=== PATIENT | female | born 1970 | race Caucasian/White ===

== ENCOUNTER 2025-06-20 16:11 | Emergency (ER) | payer MEDICARE, MEDICAID, SELFPAY ==
--- NOTE | ~2025-06-20 | CT_ITS ---
CLINICAL HISTORY: trauma CT cervical spine without contrast Comparison: None provided Findings: Straightening of the cervical lordosis. Osteopenia. Multilevel spondylosis with osteophytosis, uncovertebral hypertrophy, facet arthropathy and degenerative disc disease. No acute fractures or dislocations. Scattered prominent lymph nodes throughout the neck, may be reactive however are nonspecific. Focal patchy ground-glass consolidation right upper lobe, is nonspecific. IMPRESSION: No acute cervical spine fracture. Additional findings as described. This document has been electronically signed by: William Smiley MD on 06/20/2025 19:06:15
--- NOTE | ~2025-06-20 | XR_ITS ---
CLINICAL HISTORY: hypoxia --- Additional Notes or Special Instructions: after c- spine cleared 1 view chest x-ray Comparison: None provided Findings: No consolidation or effusion. Prominent cardiac silhouette. No acute fracture. IMPRESSION: 1. No acute findings. This document has been electronically signed by: William Smiley MD on 06/20/2025 20:03:45
--- NOTE | ~2025-06-20 | CT_ITS ---
CLINICAL HISTORY: trauma CT head without contrast Comparison: None provided Findings: Scattered subcortical and periventricular hypoattenuation, likely in keeping with chronic small vessel ischemic disease. Parenchymal volume loss with compensatory prominence of the ventricles and CSF spaces. No acute territorial infarction, intracranial hemorrhage, midline shift or hydrocephalus. Scattered lacunar infarcts left frontal lobe with ex vacuo dilatation of the left frontal horn lateral ventricle. Expansile empty sella, nonspecific. The visualized paranasal sinuses and mastoid air cells are normal. The orbits are within normal limits. There is no acute fracture. IMPRESSION: 1. No acute intracranial hemorrhage or territorial infarction. 2. Additional findings as described. This document has been electronically signed by: William Smiley MD on 06/20/2025 19:04:57
[2025-06-20 16:19] VITALS: BP 131/91; BP 160/100; PULSE 130; PULSE 90; RESP 18; TEMP 36.4; O2SAT 93; O2SAT 94; BMI 39.4
[2025-06-20 16:25] VITALS: BP 131/91; PULSE 90; RESP 18; TEMP 36.4; O2SAT 93
--- NOTE | 2025-06-20 16:30 | PC.NURSE ---
Addendum entered by James Quintanilla RN 06/20/25 18:40: Seizure pads applied to stretcher upon arrival of patient, suction ready. Original Note: 55 F presents to ED after having a fall outside her SNF while smoking a cigarette, unknown if LOC. Pt is A+Ox1 to self, did not know where she was or what happened. ? seizure at sending facility, upper extremitys were shaking per report, hx epilepsy and per facility she is non compliant with seizure meds. Pt very soft spoken but will answer questions. RR even and unlabored, denies CP or SOB.
--- NOTE | 2025-06-20 17:09 | ECG_ITS ---
Test Reason : FALL Blood Pressure : */* mmHG Vent. Rate : 105 BPM Atrial Rate : 105 BPM P-R Int : 196 ms QRS Dur : 90 ms QT Int : 360 ms P-R-T Axes : 39 -25 18 degrees QTcB Int : 475 ms Sinus tachycardia Possible Anteroseptal infarct , age undetermined Abnormal ECG No previous ECGs available Referred By: Eagle Truong Electronically Signed By: GINI MARSHALL MD
--- NOTE | 2025-06-20 17:52 | MHC.EDTECH ---
ekg delay do to ekg machine in use nurse aware
[2025-06-20 18:17] LABS: MANUAL DIFF FLAG NO
--- NOTE | 2025-06-20 18:29 | ED.GENADULT ---
HPI - General Adult General Chief complaint: Fall Stated complaint: witnessed seizure, headstrike Time Seen by Provider: 06/20/25 16:14 Source: patient, RN notes reviewed and old records reviewed Mode of arrival: EMS Limitations: other (poor historian) History of Present Illness ED Provider: Dionne HPI narrative: 55-year-old female with past medical history significant for COPD not on oxygen, epilepsy, hypothyroidism, schizophrenia presents for evaluation after a fall. The patient is at a local nursing facility, she apparently was outside smoking a cigarette when she fell to the ground. She does not remember falling. She denies any pain with the exception of the C-collar causing her neck pain. She has a history of seizure disorder in his unsure if she had a seizure She reports that she is not in any antiepileptic medications. She reports being compliant with all of her other medications Related Data Previous Rx's ?Medication ?Instructions ?Recorded cefuroxime axetil 250 mg tablet 250 mg PO Q12H #10 tabs 06/21/25 Allergies Allergy/AdvReac Type Severity Reaction Status Date / Time No Known Allergies Allergy Verified 06/20/25 16:23 Review of Systems Constitutional: Constitutional: Denies chills, Denies fever(s), Denies frequent falls and Denies headache(s) ENT: Denies vertigo, Denies dizziness, Denies headache(s) and Reports neck pain Cardiovascular: Cardiovascular: Denies chest pain and Denies dyspnea Respiratory: Respiratory: Denies dyspnea Gastrointestinal: Gastrointestinal: Denies abdominal pain, Denies nausea and Denies vomiting Musculoskeletal: Musculoskeletal: Denies back pain, Denies arthralgias, Denies joint swelling, Denies limited range of motion, Reports neck pain, Denies radiating pain into limb, Denies stiffness and Denies tingling Neurologic: Denies vertigo, Denies dizziness, Denies frequent falls, Denies headache(s) and Denies tingling PMFSH Social History Social History Smoked in Last 30 Days: No Use of substances other than those prescribed or required for medical reasons: No Advance Directives: No Advance Directives Information Provided: No Do you have a plan to hurt others: No Plan Patient : No Physical Exam ED Vital Signs: Vital Signs - 24 hr 06/20/25 16:19 06/20/25 16:25 06/20/25 16:25 Temperature 97.6 F 97.6 F 97.6 F Pulse Rate 90 90 90 Respiratory Rate 18 18 18 Blood Pressure 131/91 H 131/91 H 131/91 H Pulse Oximetry 93 93 93 Oxygen Delivery Method Room Air Room Air Oxygen Flow Rate 06/20/25 19:09 06/20/25 22:16 06/21/25 01:02 Temperature 97.9 F 98.3 F 98.7 F Pulse Rate 87 89 88 Respiratory Rate 17 15 18 Blood Pressure 135/93 H 131/90 H 140/100 H Pulse Oximetry 97 96 97 Oxygen Delivery Method Nasal Cannula Room Air Oxygen Flow Rate 2 BMI result Body Mass Index 39.4 Const General: healthy appearing, comfortable, no acute distress, alert and awake Nutritional Appearance: well nourished Orientation/consciousness: patient oriented x3 HENMT Other: There is a small abrasion to the right temporal region, no deep lacerations. Eyes Eyelids: Yes eyelids normal Conjunctivae: conjunctivae normal Sclerae: sclerae normal Corneas: corneas normal Pupils: Equal, round and reactive pupils present EOM: EOMs intact bilaterally Neck Neck: Yes full ROM Resp Effort & Inspection: normal respiratory effort, able to speak in complete sentences and not labored GI Inspection: No distended Palpation (GI): Soft to palpation, not firm, nontender, no guarding and not rigid Back/Spine/Pelvis Other: The patient is in a hard C-collar Skin General skin exam: elasticity normal Neuro General: patient oriented x3 Cranial nerves: Yes Equal, round and reactive pupils present and Yes Bilaterally intact EOM present Cognition (Neuro): normal cognition Extrem Other: Moving all extremities well without any obvious deformities Course Reevaluation(s) Reevaluation #1: The patient has been resting comfortably in the emergency department without any further syncope or seizure-like activity. She feels ready for discharge, she had a mild hypokalemia which was repleted. Her urinalysis has positive esterase and white cells without signs of contamination. We will give her a 5 day course of cefuroxime Time: 01:38 Medications Administered Discontinued Medications Generic Name Dose Route Start Last Admin Trade Name Freq PRN Reason Stop Dose Admin Lactated Ringer's 1,000 mls @ 999 mls/hr 06/20/25 19:45 06/21/25 00:02 Lr IV 06/20/25 20:45 Infused .Q1H1M JHONNY Infusion Potassium Chloride 40 meq 06/20/25 19:32 06/20/25 19:41 Potassium Chloride Er 20 Meq Tab.Er.Prt PO 06/20/25 19:33 40 meq ONCE ONE Administration Medical Decision Making Medical Decision Making [facility] Narrative: 55-year-old female with a past medical history as above presents for evaluation after a fall. In his unclear if this with a syncopal episode, seizure disorder or a mechanical fall. Plan for workup including CT scan of the brain, cervical spine, we will get a chest x-ray. She has a history of COPD and actively smoking, she denies shortness of breath. We will get an EKG, troponin basic labs. The patient's vital signs are stable, but she will be remain on the equipment monitor phototypesetting and seizure pads are in place Differential Diagnosis Differential Diagnoses: The differential diagnosis associated with the presentation includes Seizure disorder Syncope Lightheadedness Near-syncope Intracranial hemorrhage Cervical fracture Contusion Mechanical fall Admission/Observation Consideration of admission/observation: Escalation of care including admission/observation considered Lab Data [facility] Lab Attestation statement: I reviewed the patient's lab results. No leukocytosis or anemia. Normal platelet count. Potassium was low at 3.2, this was repleted with IV fluids as well as oral potassium. Patient's lactic acid was elevated 0.8 which could be related to a seizure the CPK was within normal limits, so noncontributory. This was treat with IV fluids and the lactic acidosis resolved. 06/20/25 18:07 06/20/25 18:07 Labs: Lab Results 06/20/25 06/20/25 06/20/25 Range/Units 18:07 18:09 18:10 WBC 10.6 (4.8-10.8) X10*3/uL RBC 4.93 (4.20-5.50) X10*6/uL Hgb 15.3 (12.0-16.0) g/dl Hct 43.3 (37.0-47.0) % MCV 87.8 (80.0-98.0) fL MCH 31.0 (27.0-33.0) pg MCHC 35.3 H (31.0-35.0) g/dl RDW 12.9 (11.0-16.0) % Plt Count 165 (160-400) X10*3/uL MPV 9.3 L (9.4-12.3) fL Immature Gran % (Auto) 0.4 (0.0-0.4) % Neut % (Auto) 84.8 H (45-73) % Lymph % (Auto) 7.1 L (20-40) % [place] % (Auto) 6.2 (2-11) % Eos % (Auto) 1.2 (0-4) % Baso % (Auto) 0.3 (0-2) % Lymph # (Auto) 0.8 L (1.2-4.9) X10*3/uL [place] # (Auto) 0.7 (0.1-1.2) X10*3/uL Eos # (Auto) 0.1 (0.0-0.4) X10*3/uL Baso # (Auto) 0.0 (0.0-0.2) X10*3/uL Abs Immat Gran (auto) 0.04 H (0.00-0.03) X10*3/uL Absolute Neuts (auto) 9.0 H (2.0-8.3) x10*3/uL Absolute Nucleated RBC 0.000 (0.0-0.012) X10*3/uL Nucleated RBC % (auto) 0.0 (0.0-0.2) /100WBC Sodium 145 (135-145) mmol/L Potassium 3.2 L (3.3-5.1) mmol/L Chloride 111 H (96-108) mmol/L Carbon Dioxide 24 (22-29) mmol/L Anion Gap 13 (12-20) BUN 13 (9-16) mg/dL Creatinine 0.82 (0.5-1.4) mg/dL Estim Creat Clear Calc 105.2 Estimated GFR > 60 Random Glucose 144 H (60-115) mg/dL Lactic Acid 2.8 H* (0.5-2.0) mmol/L Lactic Acid F/U @ 2Hr (0.5-2.0) mmol/L Calcium 9.5 (8.4-10.2) mg/dL Magnesium 2.1 (1.6-2.6) mg/dL Total Bilirubin 0.4 (0.0-1.0) mg/dL AST 26 (5-31) U/L ALT 28 (0-31) U/L Alkaline Phosphatase 86 (39-117) U/L Total Creatine Kinase 76 (26-140) U/L Troponin I High Sens 7.0 (<3.5-17.0) ng/L Total Protein 6.5 (6.5-8.0) g/dL Albumin 4.0 (3.5-5.0) g/dL Lipase 36 (8-78) U/L Urine Color Urine Appearance Urine pH (5.0-9.0) Ur Specific [place] (1.005-1.025) Urine Protein (Neg-Trace) mg/dL Urine Glucose (UA) (Negative) mg/dL Urine Ketones (Negative) mg/dL Urine Blood (Negative) Urine Nitrite (Negative) Ur Leukocyte Esterase (Negative) Urine RBC (0-2) /HPF Urine WBC (0-5) /HPF Ur Squamous Epith Cells (0-2) /HPF Urine Bacteria (None Seen) Hyaline Casts (0-2) /LPF Urine Opiates Screen (Not Detect) Ur Buprenorphine Scrn (Not Detect) ng/mL Ur Oxycodone Screen (Not Detect) ng/mL Urine Methadone Screen (Not Detect) ng/mL Urine Fentanyl Screen (Not Detect) Ur Barbiturates Screen (Not Detect) Ur Phencyclidine Scrn (Not Detect) Ur Amphetamines Screen (Not Detect) U Benzodiazepines Scrn (Not Detect) Urine Cocaine Screen (Not Detect) U Marijuana (THC) Screen (Not Detect) Influenza Type A (PCR) NEGATIVE (Negative) Influenza Type B (PCR) NEGATIVE (Negative) RSV RNA Qual (PCR) NEGATIVE (Negative) SARS-CoV-2 RNA (RT-PCR) NEGATIVE (Negative) 06/20/25 06/21/25 Range/Units 20:36 01:08 WBC (4.8-10.8) X10*3/uL RBC (4.20-5.50) X10*6/uL Hgb (12.0-16.0) g/dl Hct (37.0-47.0) % MCV (80.0-98.0) fL MCH (27.0-33.0) pg MCHC (31.0-35.0) g/dl RDW (11.0-16.0) % Plt Count (160-400) X10*3/uL MPV (9.4-12.3) fL Immature Gran % (Auto) (0.0-0.4) % Neut % (Auto) (45-73) % Lymph % (Auto) (20-40) % [place] % (Auto) (2-11) % Eos % (Auto) (0-4) % Baso % (Auto) (0-2) % Lymph # (Auto) (1.2-4.9) X10*3/uL [place] # (Auto) (0.1-1.2) X10*3/uL Eos # (Auto) (0.0-0.4) X10*3/uL Baso # (Auto) (0.0-0.2) X10*3/uL Abs Immat Gran (auto) (0.00-0.03) X10*3/uL Absolute Neuts (auto) (2.0-8.3) x10*3/uL Absolute Nucleated RBC (0.0-0.012) X10*3/uL Nucleated RBC % (auto) (0.0-0.2) /100WBC Sodium (135-145) mmol/L Potassium (3.3-5.1) mmol/L Chloride (96-108) mmol/L Carbon Dioxide (22-29) mmol/L Anion Gap (12-20) BUN (9-16) mg/dL Creatinine (0.5-1.4) mg/dL Estim Creat Clear Calc Estimated GFR Random Glucose (60-115) mg/dL Lactic Acid (0.5-2.0) mmol/L Lactic Acid F/U @ 2Hr 1.0 (0.5-2.0) mmol/L Calcium (8.4-10.2) mg/dL Magnesium (1.6-2.6) mg/dL Total Bilirubin (0.0-1.0) mg/dL AST (5-31) U/L ALT (0-31) U/L Alkaline Phosphatase (39-117) U/L Total Creatine Kinase (26-140) U/L Troponin I High Sens (<3.5-17.0) ng/L Total Protein (6.5-8.0) g/dL Albumin (3.5-5.0) g/dL Lipase (8-78) U/L Urine Color Yellow Urine Appearance Clear Urine pH 6.5 (5.0-9.0) Ur Specific [place] 1.010 (1.005-1.025) Urine Protein Negative (Neg-Trace) mg/dL Urine Glucose (UA) Negative (Negative) mg/dL Urine Ketones Negative (Negative) mg/dL Urine Blood Negative (Negative) Urine Nitrite Negative (Negative) Ur Leukocyte Esterase Large (3+) H (Negative) Urine RBC 0-2 (0-2) /HPF Urine WBC 21-50 H (0-5) /HPF Ur Squamous Epith Cells 0-2 (0-2) /HPF Urine Bacteria None Seen (None Seen) Hyaline Casts 0-2 (0-2) /LPF Urine Opiates Screen Not Detected (Not Detect) Ur Buprenorphine Scrn Not Detected (Not Detect) ng/mL Ur Oxycodone Screen Not Detected (Not Detect) ng/mL Urine Methadone Screen Not Detected (Not Detect) ng/mL Urine Fentanyl Screen Not Detected (Not Detect) Ur Barbiturates Screen Not Detected (Not Detect) Ur Phencyclidine Scrn Not Detected (Not Detect) Ur Amphetamines Screen Not Detected (Not Detect) U Benzodiazepines Scrn Not Detected (Not Detect) Urine Cocaine Screen Not Detected (Not Detect) U Marijuana (THC) Screen Not Detected (Not Detect) Influenza Type A (PCR) (Negative) Influenza Type B (PCR) (Negative) RSV RNA Qual (PCR) (Negative) SARS-CoV-2 RNA (RT-PCR) (Negative) Radiology Impression Discussion of test interpretation with radiology: I have reviewed the radiologist's reading. Radiologist Impression: Findings: Scattered subcortical and periventricular hypoattenuation, likely in keeping with chronic small vessel ischemic disease. Parenchymal volume loss with compensatory prominence of the ventricles and CSF spaces. No acute territorial infarction, intracranial hemorrhage, midline shift or hydrocephalus. Scattered lacunar infarcts left frontal lobe with ex vacuo dilatation of the left frontal horn lateral ventricle. Expansile empty sella, nonspecific. The visualized paranasal sinuses and mastoid air cells are normal. The orbits are within normal limits. There is no acute fracture. IMPRESSION: 1. No acute intracranial hemorrhage or territorial infarction. 2. Additional findings as described. This document has been electronically signed by: William Smiley MD on 06/20/2025 19:04:57 Findings: Straightening of the cervical lordosis. Osteopenia. Multilevel spondylosis with osteophytosis, uncovertebral hypertrophy, facet arthropathy and degenerative disc disease. No acute fractures or dislocations. Scattered prominent lymph nodes throughout the neck, may be reactive however are nonspecific. Focal patchy ground-glass consolidation right upper lobe, is nonspecific. IMPRESSION: No acute cervical spine fracture. Additional findings as described. This document has been electronically signed by: William Smiley MD on 06/20/2025 19:06:15 Findings: No consolidation or effusion. Prominent cardiac silhouette. No acute fracture. IMPRESSION: 1. No acute findings. This document has been electronically signed by: William Smiley MD on 06/20/2025 20:03:45 Discharge Plan Discharge Clinical Impression: UTI (urinary tract infection) Patient Disposition: Xfer [facility] Instructions: Urinary Tract Infection in Women (ED) Additional Instructions: Your workup in the ER today was reassuring. You did have signs of a possible UTI Take the cefuroxime twice daily for [address] scan did not show any traumatic injuries. Prescriptions: New cefuroxime axetil 250 mg tablet 250 mg PO Q12H Qty: 10 0RF Print Language: Nigerien
[2025-06-20 18:36] LABS: Hematocrit 43.3 % (37.0-47.0); Hemoglobin 15.3 g/dl (12.0-16.0); Imm Gran Abs Auto 0.04 X10*3/uL (0.00-0.03); Imm Gran Pct Auto 0.4 % (0.0-0.4); Lymphocytes Absolute Auto 0.8 X10*3/uL (1.2-4.9); Mean Corpuscular HGB Conc 35.3 g/dl (31.0-35.0); Mean Corpuscular Hemoglobin 31.0 pg (27.0-33.0); Mean Corpuscular Volume 87.8 fL (80.0-98.0); NRBC Abs Auto 0.000 X10*3/uL (0.0-0.012); NRBC Pct Auto 0.0 /100WBC (0.0-0.2); Platelet Count 165 X10*3/uL (160-400); Red Blood Count 4.93 X10*6/uL (4.20-5.50); White Blood Count 10.6 X10*3/uL (4.8-10.8)
[2025-06-20 18:38] LABS: Alanine Aminotransferase 28 U/L (0-31); Albumin Level 4.0 g/dL (3.5-5.0); Alkaline Phosphatase 86 U/L (39-117); Anion Gap 13 (12-20); Aspartate Amino Transferase 26 U/L (5-31); Blood Urea Nitrogen 13 mg/dL (9-16); Calcium 9.5 mg/dL (8.4-10.2); Carbon Dioxide 24 mmol/L (22-29); Chloride 111 mmol/L (96-108); Creatinine Clr Calc Pharmacy 105.2; Estimated Glomerular Filt Rate > 60; Lipase 36 U/L (8-78); Magnesium 2.1 mg/dL (1.6-2.6); Potassium 3.2 mmol/L (3.3-5.1); Sodium 145 mmol/L (135-145); Total Protein 6.5 g/dL (6.5-8.0)
[2025-06-20 18:45] LABS: Troponin-I High Sensitivity 7.0 ng/L (<3.5-17.0)
[2025-06-20 19:04] LABS: Resp Syncy Virus RNA Qual PCR NEGATIVE (Negative); SARS COV2 PCR INHOUSE NEGATIVE (Negative)
[2025-06-20 19:09] VITALS: BP 135/93; PULSE 87; RESP 17; TEMP 36.6; O2SAT 97
[2025-06-20] MEDS: Potassium Chloride ER 20 MEQ TAB.ER.PRT 40 MEQ PO (19:41)
[2025-06-20] MEDS: Lactated Ringers 1,000 ML 999 ML IV (19:41)
[2025-06-20 20:16] LABS: Reflex Lactate? Lactic Acid Added
[2025-06-20 20:53] LABS: ~Lactic Acid-LAB USE ONLY 1.0 mmol/L (0.5-2.0)
--- OUTSIDE RECORDS SUMMARY | 2025-06-20 21:51 | XMS_ITS | Clinical Summary ---
Author Organization [facility] Address [address] [place] [address] Phone Care Team Providers Care Escalator Constructor Name Role Phone Umer Noriega MD Primary Care Provider Encounters Date Type Department Care Team Description 05/12/2025 Lab Requisition [facility] Lab [address] [place] [phone] Umer Noriega MD Anemia, unspecified; Hypothyroidism, unspecified; Vitamin D deficiency, unspecified 05/07/2025 Lab Requisition [facility] Lab [address] [place] [phone] Umer Noriega MD Hypothyroidism, unspecified 04/19/2025 Lab Requisition [facility] Lab [address] [place] [phone] Umer Noriega MD Hypothyroidism, unspecified; Folate deficiency anemia, unspecified from Last 3 Months Social History Tobacco Use Types Packs/Day Years Used Date Smoking Tobacco: Never Assessed Comments Unknown Sex and Gender Information Value Date Recorded Sex Assigned at Not on file Legal Sex Female 8:36 AM EDT Gender Identity Not on file Sexual Orientation Not on file Plan of Treatment Health Maintenance Due Date Last Done Comments Breast Cancer Screening 1968 DTaP,Tdap,and Td Vaccines (1 - Tdap) 1987 Hepatitis B Vaccines (1 of 3 - 19+ 3-dose series) 1987 Cervical Cancer Screening: P ap Smear 1989 Pneumococcal Vaccine: 50+ Ye ars (1 of 1 - PCV) 2018 Zoster Vaccines (1 of 2) 2018 Depression Screening 10/11/2024 Colorectal Cancer Screening: Colonoscopy 04/19/2025 HIV Screening 04/19/2025 Hepatitis C Screening 04/19/2025 Medicare Annual Wellness Visit 04/19/2025 Social Influencers of Health Screening 04/19/2025 COVID-19 Vaccine (2023-2 5 season) 2025 Influenza Vaccine (#1) 2025 Cholesterol Screening (Lipid Panel) 04/19/2030 04/19/2025 HIB Vaccines Aged Out No longer eligi ble based on patient's age to complete this topic HPV Vaccines Aged Out No longer eligi ble based on patient's age to complete this topic Hepatitis A Vaccines Aged Out No long er eligible based on patient's age to complete this topic IPV Vaccines Aged Out No longer eligi ble based on patient's age to complete this topic MMR Vaccines Aged Out No longer eligi ble based on patient's age to complete this topic Meningococcal ACWY Vaccine Aged Out N o longer eligible based on patient's age to complete this topic Meningococcal B Vaccine Aged Out No l onger eligible based on patient's age to complete this topic RSV Immunization Patients Un huma 20 months Aged Out No longer eligible b ased on patient's age to complete this topic Varicella Vaccines Aged Out No longer eligible based on patient's age to complete this topic Procedures Procedure Name Priority Date/Time Associated Diagnosis Comments THYROID STIMULATING HORMONE Routine 05/07/2025 8:36 AM EDT Hypothyroidism, unspecified MAGNESIUM Routine 04/19/2025 7:37 AM EDT Hypothyroidism, unspecified Folate deficiency anemia, unspecified TRIIODOTHYRONINE TOTAL Routine 7:37 AM EDT Hypothyroidism, unspecified Folate deficiency anemia, unspecified THYROXINE TOTAL Routine 04/19/2025 7:37 AM EDT Hypothyroidism, unspecified Folate deficiency anemia, unspecified THYROID STIMULATING HORMONE Routine 04/19/2025 7:37 AM EDT Hypothyroidism, unspecified Folate deficiency anemia, unspecified LIPID PANEL WITH REFLEX TO DIRECT LDL Routine 04/19/2025 7:37 AM EDT Hypothyroidism, unspecified Folate deficiency anemia, unspecified COMPREHENSIVE METABOLIC PANEL Routine 04/19/2025 7:37 AM EDT Hypothyroidism, unspecified Folate deficiency anemia, unspecified COMPLETE BLOOD COUNT Routine 04/19/2025 7:37 AM EDT Hypothyroidism, unspecified Folate deficiency anemia, unspecified from Last 3 Months Results * (ABNORMAL) Thyroid stimulating hormone (05/07/2025 8:36 AM EDT) Only the most recent of2 resultswithin the time period is included. Pathologist [facility] TSH 9.00(H) 0.40 - 4.00 mcIU/mL LAB CHEMISTRY METHOD 05/07/2025 7:32 PM EDT [facility] Blood Venous blood specimen / Unknown Venipuncture / Unknown 05/07/2025 8:36 AM EDT 05/07/2025 11:05 AM EDT us Umer Noriega MD LAB BLOOD ORDERABLES Final R esult [facility] [address] [place] [address], [place] [phone] * (ABNORMAL) Lipid panel with reflex to direct LDL (04/19/2025 7:37 AM EDT) [facility] Cholesterol 198 0 - 200 mg/dL LAB CHEMISTRY METHOD 04/19/2025 9:29 AM EDT [facility] Triglycerides 87 0 - 150 mg/dL LAB CHEMISTRY METHOD 04/19/2025 9:29 AM EDT [facility] HDL 66 >=40 mg/dL LAB CHEMISTRY METHOD 04/19/2025 9:29 AM EDT [facility] LDL Calculated 115(H) 0 - 100 mg/dL LAB CHEMISTRY METHOD 04/19/2025 9:29 AM EDT [facility] VLDL Cholesterol Vidal 17.4 mg/dL LAB CHEMISTRY METHOD 04/19/2025 9:29 AM EDT [facility] Non HDL Chol. (LDL+VLDL) 132 <145 mg/dL LAB CHEMISTRY METHOD 04/19/2025 9:29 AM [facility] Chol/HDL Ratio 3.0 0.0 - 4.4 LAB CHEMISTRY METHOD 04/19/2025 9:29 AM [facility] Blood Venous blood specimen / Unknown Venipuncture / Unknown 04/19/2025 7:37 AM EDT 04/19/2025 8:40 AM EDT us Umer Noriega MD LAB BLOOD ORDERABLES Final R esult [facility] [address] [place] [address], * Complete blood count (04/19/2025 7:37 AM EDT) WBC 6.7 4.8 - 10.8 K/mcL LAB HEMETOLOGY METHOD 04/19/2025 9:05 AM [facility] RBC 4.50 3.80 - 4.80 M/[facility] LAB HEMETOLOGY METHOD 04/19/2025 9:05 AM [facility] Hemoglobin 13.6 11.5 - 16.0 g/dL LAB HEMETOLOGY METHOD 04/19/2025 9:05 AM [facility] Hematocrit 40.9 35.0 - 47.0 % LAB HEMETOLOGY METHOD 04/19/2025 9:05 AM [facility] MCV 90.5 79.0 - 98.0 FL LAB HEMETOLOGY METHOD 04/19/2025 9:05 AM [facility] MCH 30.1 27.0 - 32.0 pcg LAB HEMETOLOGY METHOD 04/19/2025 9:05 AM [facility] MCHC 33.3 32.0 - 37.0 g/dL LAB HEMETOLOGY METHOD 04/19/2025 9:05 AM EDT [facility] RDW 13.7 11.0 - 15.0 % LAB HEMETOLOGY METHOD 04/19/2025 9:05 AM EDT [facility] Platelets 165 130 - 400 K/mcL LAB HEMETOLOGY METHOD 04/19/2025 9:05 AM EDT [facility] MPV 9.6 7.0 - 11.0 FL LAB HEMETOLOGY METHOD 04/19/2025 9:05 AM EDT [facility] NRBC 0.0 <1.0 % LAB HEMETOLOGY METHOD 04/19/2025 9:05 AM EDT [facility] NRBC Absolute 0.00 <0.10 K/mcL LAB HEMETOLOGY METHOD 04/19/2025 9:05 AM EDT [facility] Blood Venous blood specimen / Unknown Venipuncture / Unknown 04/19/2025 7:37 AM EDT 04/19/2025 8:40 AM EDT Umer Noriega MD LAB BLOOD ORDERABLES Final R esult [facility] [address] [place] [address], * Triiodothyronine total (04/19/2025 7:37 AM EDT) T3, Total 89.23 60.00 - 181.00 ng/dL LAB CHEMISTRY METHOD 04/19/2025 11:08 AM EDT [facility] Blood Venous blood specimen / Unknown Venipuncture / Unknown 04/19/2025 7:37 AM EDT 04/19/2025 8:40 AM EDT Umer Noriega MD LAB BLOOD ORDERABLES Final R esult [facility] [address] [place] [address], [place] [phone] * Thyroxine total (04/19/2025 7:37 AM EDT) [facility] T4, Total 6.2 4.5 - 10.9 mcg/dL LAB CHEMISTRY METHOD 04/19/2025 12:50 PM EDT [facility] Blood Venous blood specimen / Unknown Venipuncture / Unknown 04/19/2025 7:37 AM EDT 04/19/2025 8:40 AM EDT Umer Noriega MD LAB BLOOD ORDERABLES Final R esult Performing Organization Address City/[facility]/ZIP Co de Phone Number [facility] [address] [place] [address], [place] [phone] * Magnesium (04/19/2025 7:37 AM EDT) [facility] Magnesium 1.9 1.9 - 2.6 mg/dL LAB CHEMISTRY METHOD 04/19/2025 9:29 AM EDT [facility] Blood Venous blood specimen / Unknown Venipuncture / Unknown 04/19/2025 7:37 AM EDT 04/19/2025 8:40 AM EDT Umer Noriega MD LAB BLOOD ORDERABLES Final R esult [facility] [address] [place] [address], [place] [phone] * (ABNORMAL) Comprehensive metabolic panel (04/19/2025 7:37 AM EDT) [facility] Sodium 139 133 - 145 mmol/L LAB CHEMISTRY METHOD 04/19/2025 9:29 AM EDT [facility] Potassium 3.8 3.5 - 5.5 mmol/L LAB CHEMISTRY METHOD 04/19/2025 9:29 AM [facility] Chloride 106 96 - 110 mmol/L LAB CHEMISTRY METHOD 04/19/2025 9:29 AM [facility] CO2 28 21 - 32 mmol/L LAB CHEMISTRY METHOD 04/19/2025 9:29 AM [facility] Anion Gap 5 3 - 11 LAB CHEMISTRY METHOD 04/19/2025 9:29 AM [facility] Glucose 80 70 - 100 mg/dL LAB CHEMISTRY METHOD 04/19/2025 9:29 AM [facility] BUN 16 5 - 25 mg/dL LAB CHEMISTRY METHOD 04/19/2025 9:29 AM [facility] Creatinine 0.76 0.50 - 1.10 mg/dL LAB CHEMISTRY METHOD 04/19/2025 9:29 AM [facility] eGFR 92 >=60 mL/min/1. 73m2 LAB CHEMISTRY METHOD 04/19/2025 9:29 AM [facility] Comment:Calculation based on the Chronic Kidney Disease Epidemiology Collaboration (CKD-EPI) equation refit without adjustment for race. BUN/Creatinine Ratio 21.1 LAB CHEMISTRY METHOD 04/19/2025 9:29 AM [facility] Calcium 9.6 8.5 - 10.5 mg/dL LAB CHEMISTRY METHOD 04/19/2025 9:29 AM [facility] AST (SGOT) 20 10 - 42 unit/L LAB CHEMISTRY METHOD 04/19/2025 9:29 AM [facility] ALT (SGPT) 32 10 - 60 unit/L LAB CHEMISTRY METHOD 04/19/2025 9:29 AM [facility] Alkaline Phosphatase 137(H) 42 - 121 unit/L LAB CHEMISTRY METHOD 04/19/2025 9:29 AM [facility] Total Protein 6.5 6.0 - 8.0 g/dL LAB CHEMISTRY METHOD 04/19/2025 9:29 AM [facility] Albumin 3.5 3.2 - 5.0 g/dL LAB CHEMISTRY METHOD 04/19/2025 9:29 AM EDT [facility] Total Bilirubin 0.5 0.0 - 1.4 mg/dL LAB CHEMISTRY METHOD 04/19/2025 9:29 AM EDT [facility] ([facility] Blood Venous blood specimen / Unknown Venipuncture / Unknown 04/19/2025 7:37 AM EDT 04/19/2025 8:40 AM EDT us Umer Noriega MD LAB BLOOD ORDERABLES Final R esult [facility] ([facility]) [facility] [address] [place] [address], [place] [phone] from Last 3 Months Insurance MEDICARE MEDICAID - [place] Care Teams Escalator Constructor Relationship Specialty Start Date End Date Umer Noriega MD [address] [place] [address] PCP - General Family Medicine 04/19/25
--- OUTSIDE RECORDS SUMMARY | 2025-06-20 21:51 | XMS_ITS | Encounter Summary ---
Author Organization [facility] Address [address] [place] [address] Care Team Providers Care Co Chairman Name Role Phone Umer Noriega MD Primary Care Provider Encounter Details Date Type Department Care Team (Late st Contact Info) Description 05/07/2025 Lab Requisition [facility] - Main Lab [address] [place] [address] Umer Noriega MD [address] [place] [address] Hypothyroidism, unspecified Social History Tobacco Use Types Packs/Day Years Used Date Smoking Tobacco: Never Assessed Comments Unknown Sex and Gender Information Value Date Recorded Sex Assigned at Not on file Legal Sex Female 8:36 AM EDT Gender Identity Not on file Sexual Orientation Not on file documented as of this encounter Plan of Treatment Not on file documented as of this encounter Procedures Procedure Name Priority Date/Time Associated Diagnosis Comments THYROID STIMULATING HORMONE Routine 05/07/2025 8:36 AM EDT Hypothyroidism, unspecified documented in this encounter Results * (ABNORMAL) Thyroid stimulating hormone (05/07/2025 8:36 AM EDT) TSH 9.00(H) 0.40 - 4.00 mcIU/mL LAB CHEMISTRY METHOD 05/07/2025 7:32 PM EDT [facility] ([facility]) [facility] Blood Venous blood specimen / Unknown Venipuncture / Unknown 05/07/2025 8:36 AM EDT 05/07/2025 11:05 AM EDT us Umer Noriega MD LAB BLOOD ORDERABLES Final R esult [facility] ([facility]) HOSPITAL LAB [address] [place] [address], documented in this encounter Visit Diagnoses Diagnosis Hypothyroidism, unspecified documented in this encounter Care Teams Co Chairman Relationship Specialty Start Date End Date Umer Noriega MD [address] [place] [address] PCP - General Family Medicine 04/19/25 documented as of this encounter
--- OUTSIDE RECORDS SUMMARY | 2025-06-20 21:51 | XMS_ITS | Encounter Summary ---
Author Organization [facility] Address [address] [place] [address] Care Team Providers Care Assistant Speech Language Pathologist Name Role Phone Umer Noriega MD Primary Care Provider Encounter Details Date Type Department Care Team (Late st Contact Info) Description 04/19/[address] [facility] - Main Lab [address] [facility] [place] [address] Umer Noriega MD [address] [place] [address] Hypothyroidism, unspecified; Folate deficiency anemia, unspecified Social History Tobacco Use Types Packs/Day [...] Procedure Name Priority Date/Time Associated Diagnosis Comments LIPID PANEL WITH REFLEX TO DIRECT LDL [...] EDT Hypothyroidism, unspecified Folate deficiency anemia, unspecified MAGNESIUM Routine 04/19/2025 7:37 AM EDT Hypothyroidism, unspecified Folate deficiency anemia, unspecified COMPREHENSIVE METABOLIC PANEL Routine 04/19/2025 7:37 AM EDT Hypothyroidism, unspecified Folate deficiency anemia, unspecified documented in this encounter Results * Magnesium (04/19/2025 7:37 AM EDT) Magnesium 1.9 1.9 - 2.6 mg/dL LAB CHEMISTRY METHOD 04/19/2025 9:29 AM EDT [facility] Blood Venous blood specimen / Unknown Venipuncture / Unknown 04/19/2025 7:37 AM EDT 04/19/2025 8:40 AM EDT Umer Noriega MD LAB BLOOD ORDERABLES Final R esult Performing Organization Address City/[facility]/ZIP Co de Phone Number [facility] [address] [place] [address], [place] [phone] * Triiodothyronine total (04/19/2025 7:37 AM EDT) Pathologist [facility] T3, Total 89.23 60.00 - 181.00 ng/dL LAB CHEMISTRY METHOD 04/19/2025 11:08 AM EDT [facility] Blood Venous blood specimen / Unknown Venipuncture / Unknown 04/19/2025 7:37 AM EDT 04/19/2025 8:40 AM EDT Umer Noriega MD LAB BLOOD ORDERABLES Final R esult [facility] [address] [place] [address], [place] [phone] * Thyroxine total (04/19/2025 7:37 AM EDT) T4, Total 6.2 4.5 - 10.9 mcg/dL LAB CHEMISTRY METHOD 04/19/2025 12:50 PM EDT [facility] Blood Venous blood specimen / Unknown Venipuncture / Unknown 04/19/2025 7:37 AM EDT 04/19/2025 8:40 AM EDT Umer Noriega MD LAB BLOOD ORDERABLES Final R esult Performing Organization Address City/[facility]/ZIP Co de Phone Number [facility] [address] [place] [address], [place] [phone] * (ABNORMAL) Thyroid stimulating hormone (04/19/2025 7:37 AM EDT) TSH 11.71(H) 0.40 - 4.00 mcIU/mL LAB CHEMISTRY METHOD 04/19/2025 11:08 AM EDT [facility] Blood Venous blood specimen / Unknown Venipuncture / Unknown 04/19/2025 7:37 AM EDT 04/19/2025 8:40 AM EDT Umer Noriega MD LAB BLOOD ORDERABLES Final R esult Performing Organization Address City/[facility] Co de Phone Number [facility] [address] [place] [address], [place] [phone] * (ABNORMAL) Lipid panel with reflex to direct LDL (04/19/2025 7:37 AM EDT) Cholesterol 198 0 - 200 mg/dL LAB CHEMISTRY METHOD 04/19/2025 9:29 AM EDT [facility] Triglycerides 87 0 - 150 mg/dL LAB CHEMISTRY METHOD 04/19/2025 9:29 AM EDT [facility] HDL 66 >=40 mg/dL LAB CHEMISTRY METHOD 04/19/2025 9:29 AM EDT [facility] LDL Calculated 115(H) 0 - 100 mg/dL LAB CHEMISTRY METHOD 04/19/2025 9:29 AM EDT [facility] VLDL Cholesterol Vidal 17.4 mg/dL LAB CHEMISTRY METHOD 04/19/2025 9:29 AM T [facility] Non HDL Chol. (LDL+VLDL) 132 <145 mg/dL LAB CHEMISTRY METHOD 04/19/2025 9:29 AM [facility] Chol/HDL Ratio 3.0 0.0 - 4.4 LAB CHEMISTRY METHOD 04/19/2025 9:29 AM T [facility] Blood Venous blood specimen / Unknown Venipuncture / Unknown 04/19/2025 7:37 AM EDT 04/19/2025 8:40 AM EDT us Umer Noriega MD LAB BLOOD ORDERABLES Final R esult [facility] [address] [place] [address], * (ABNORMAL) Comprehensive metabolic panel (04/19/2025 7:37 AM EDT) Sodium 139 133 - 145 mmol/L LAB CHEMISTRY METHOD 04/19/2025 9:29 AM [facility] Potassium 3.8 3.5 - 5.5 mmol/L [...] g/dL LAB CHEMISTRY METHOD 04/19/2025 9:29 AM [facility] Albumin 3.5 3.2 - 5.0 g/dL LAB CHEMISTRY METHOD 04/19/2025 9:29 AM [facility] Total Bilirubin 0.5 0.0 - 1.4 mg/dL LAB CHEMISTRY METHOD 04/19/2025 9:29 AM [facility] Blood Venous blood specimen / Unknown Venipuncture / Unknown 04/19/2025 7:37 AM EDT 04/19/2025 8:40 AM EDT Umer Noriega MD LAB BLOOD ORDERABLES Final R esult [facility] [address] [place] [address], * Complete blood count (04/19/2025 7:37 AM EDT) WBC 6.7 4.8 - 10.8 K/mcL LAB HEMETOLOGY METHOD 04/19/2025 9:05 AM EDT [facility] RBC 4.50 3.80 - 4.80 M/mcL LAB HEMETOLOGY METHOD 04/19/2025 9:05 AM EDT [facility] Hemoglobin 13.6 11.5 - 16.0 g/dL LAB HEMETOLOGY METHOD 04/19/2025 9:05 AM [facility] Hematocrit 40.9 35.0 - 47.0 % LAB HEMETOLOGY METHOD 04/19/2025 [facility] MCV 90.5 79.0 - 98.0 FL LAB HEMETOLOGY METHOD 04/19/2025 9:05 AM EDT [facility] MCH 30.1 27.0 - 32.0 pcg LAB HEMETOLOGY METHOD 04/19/2025 9:05 AM [facility] MCHC 33.3 32.0 - 37.0 g/dL LAB HEMETOLOGY METHOD 04/19/2025 9:05 AM EDT [facility] RDW 13.7 11.0 - 15.0 % LAB HEMETOLOGY METHOD 04/19/2025 9:05 AM [facility] Platelets 165 130 - 400 K/mcL LAB HEMETOLOGY METHOD 04/19/2025 9:05 AM [facility] MPV 9.6 7.0 - 11.0 FL LAB HEMETOLOGY METHOD 04/19/2025 9:05 [facility] NRBC 0.0 <1.0 % LAB HEMETOLOGY METHOD 04/19/2025 9:05 AM EDT [facility] NRBC Absolute 0.00 <0.10 K/mcL LAB HEMETOLOGY METHOD 04/19/2025 9:05 AM EDT [facility] Blood Venous blood specimen / Unknown Venipuncture / Unknown 04/19/2025 7:37 AM EDT 04/19/2025 8:40 AM EDT us Umer Noriega MD LAB BLOOD ORDERABLES Final R esult [facility] [address] [place] [address], documented in this encounter Visit Diagnoses Diagnosis Hypothyroidism, unspecified Folate deficiency anemia, unspecified documented in this encounter Care Teams Assistant Speech Language Pathologist Relationship Specialty Start Date End Date Umer Noriega MD [address] [place] [address] PCP - General Family Medicine 04/19/25 documented as of this encounter
[2025-06-20 22:16] VITALS: BP 131/90; PULSE 89; RESP 15; TEMP 36.8; O2SAT 96
[2025-06-21 01:02] VITALS: BP 140/100; PULSE 88; RESP 18; TEMP 37.1; O2SAT 97
[2025-06-21 01:14] LABS: Appearance Urine Clear; Glucose Urine UA Negative (Negative); PH 6.5 (5.0-9.0); Specific Gravity - Urine 1.010 (1.005-1.025); UMIC TRIGGER UACC YES
[2025-06-21 01:19] LABS: UACC Culture Trigger YES
[2025-06-21 01:24] LABS: Cannabinoid Screen Urine Not Detected (Not Detect)
[2025-06-21 02:54] VITALS: BP 140/100; PULSE 88; RESP 18; TEMP 37.1; O2SAT 97
--- NOTE | 2025-06-21 02:54 | PC.NURSE ---
Rn called [facility] and gave report to sanket. EMS picked up pt. Pt on her way to [facility].
== END 2025-06-21 02:55 | disposition skilled nursing facility (03) ==
PROVIDERS: Physician Assistant; Emergency Provider Student in an Organized Health Care Education/Training Program; PCP Internal Medicine Rheumatology
DX: N39.0 Urinary tract infection, site not specified (principal); R55 Syncope and collapse; G40.909 Epilepsy, unspecified, not intractable, without status epilepticus; J44.9 Chronic obstructive pulmonary disease, unspecified; Z99.81 Dependence on supplemental oxygen; Z03.818 Encounter for observation for suspected exposure to other biological agents ruled out
CPT/HCPCS: 36415; 70450; 71045; 72125; 80053; 80307; 81001; 82550; 83605; 83690; 83735; 84484; 85025; 87086; 87637; 93005; 96360; 96361; 99285; J7120

== ENCOUNTER → 2025-06-20 17:09 | Outpatient (BNV) | payer MEDICARE, MEDICAID, SELFPAY | PROVIDERS: Emergency Provider Student in an Organized Health Care Education/Training Program; Visit Provider Radiology Diagnostic Radiology | DX: M54.2 Cervicalgia (principal); S09.90XA Unspecified injury of head, initial encounter; R09.02 Hypoxemia | CPT/HCPCS: 70450; 71045; 72125 ==

== ENCOUNTER → 2025-06-20 17:09 | Outpatient (BNV) | payer MEDICARE, MEDICAID, SELFPAY | PROVIDERS: Emergency Provider Student in an Organized Health Care Education/Training Program; PCP Internal Medicine Rheumatology; Visit Provider Internal Medicine Cardiovascular Disease | DX: R00.0 Tachycardia, unspecified (principal) | CPT/HCPCS: 93010 ==

== ENCOUNTER 2025-07-06 16:23 | Emergency (ER) | payer MEDICARE, MEDICAID, SELFPAY ==
[2025-07-06 16:33] VITALS: BP 120/60; BP 124/93; PULSE 118; PULSE 130; RESP 16; TEMP 36.6; O2SAT 92; O2SAT 93; BMI 41.3
--- OUTSIDE RECORDS SUMMARY | 2025-07-06 16:43 | XMS_ITS | Encounter Summary ---
Author Organization [facility] Address [address] [place] [address] Care Team Providers Care Fish Packer Name Role Phone Umer Noriega MD Primary Care Provider Encounter Details Date Type Department Care Team (Late st Contact Info) Description 05/07/2025 Lab Requisition [facility] - Main Lab [address] [place] [address] Umer Noriega MD [address] [place] [address] Hypothyroidism, unspecified Social History Tobacco [...] LAB CHEMISTRY METHOD 05/07/2025 7:[address] [facility] ([facility]) [facility] Blood Venous blood specimen / Unknown Venipuncture / Unknown 05/07/2025 8:36 AM EDT 05/07/2025 11:05 AM EDT us Umer Noriega MD LAB BLOOD ORDERABLES Final R esult [facility]) H[facility] LAB [address] [place] [address], documented in this encounter Visit Diagnoses Diagnosis Hypothyroidism, unspecified documented in this encounter Care Teams Fish Packer Relationship Specialty Start Date End Date Umer Noriega MD [address] [place] [address] PCP - General Family Medicine 04/19/25 documented as of this encounter
--- OUTSIDE RECORDS SUMMARY | 2025-07-06 16:43 | XMS_ITS | Clinical Summary ---
Author Organization 299 [facility] Address [address] [place] [address] Phone Care Team Providers Care Bottom Turning Lathe Turner Name Role Phone Umer Noriega MD Primary Care Provider Encounters Date Type Department Care Team Description 05/12/2025 Lab Requisition [facility] [address] [place] [phone] Umer Noriega MD Anemia, unspecified; Hypothyroidism, unspecified; Vitamin D deficiency, unspecified 05/07/2025 Lab Requisition [facility] [address] [place] [phone] Umer Noriega MD Hypothyroidism, unspecified 04/19/2025 Lab Requisition [facility] [address] [place] [phone] Umer Noriega MD Hypothyroidism, unspecified; Folate deficiency [...] Influencers of Health Screening 04/19/2025 COVID-19 Vaccine (1 - 2023-2 5 season) 2025 Influenza Vaccine (#1) 2025 Cholesterol Screening (Lipid Panel) 04/19/2030 04/19/2025 RSV Immunization Adult Patie nts (1 - 1-dose 75+ series) 2043 HIB Vaccines Aged Out No longer eligi [...] of2 resultswithin the time period is included. TSH 9.00(H) 0.40 - 4.00 mcIU/mL LAB CHEMISTRY METHOD 05/07/2025 7:32 PM EDT [facility] Blood Venous blood specimen / Unknown Venipuncture / Unknown 05/07/2025 8:36 AM EDT 05/07/2025 11:05 AM EDT us Umer Noriega MD LAB BLOOD ORDERABLES Final R esult [facility] [address] [place] [address], [place] [phone] * (ABNORMAL) Lipid panel with reflex to direct LDL (04/19/2025 7:37 AM EDT) Cholesterol 198 0 - 200 mg/dL LAB CHEMISTRY METHOD 04/19/2025 9:29 AM EDT [facility] Triglycerides 87 0 - 150 mg/dL LAB CHEMISTRY METHOD 04/19/2025 9:29 AM EDT [facility] HDL 66 >=40 mg/dL LAB CHEMISTRY METHOD 04/19/2025 9:29 AM EDT [facility] LDL Calculated 115(H) 0 - 100 mg/dL LAB CHEMISTRY METHOD 04/19/2025 9:29 AM EDT [facility] VLDL Cholesterol Vidal 17.4 mg/dL LAB CHEMISTRY METHOD 04/19/2025 9:29 AM T [facility] Non HDL Chol. (LDL+VLDL) 132 <145 mg/dL LAB CHEMISTRY METHOD 04/19[facility]2025 [facility] Chol/HDL Ratio 3.0 0.0 - 4.4 LAB CHEMISTRY METHOD 04/19/2025 9:29 AM [facility] Blood Venous blood specimen / Unknown Venipuncture / Unknown 04/19/2025 7:37 AM EDT 04/19/2025 8:40 AM EDT us Umer Noriega MD LAB BLOOD ORDERABLES Final R esult [facility] [address] [place] [address], [place] [phone] * Complete blood count (04/19/2025 7:37 AM EDT) WBC 6.7 4.8 - 10.8 K/mcL LAB HEMETOLOGY METHOD 04/19/2025 9:05 AM [facility] RBC 4.50 3.80 - 4.80 M/mcL LAB HEMETOLOGY METHOD 04/19/2025 9:05 AM [facility] Hemoglobin 13.6 11.5 - 16.0 g/dL LAB HEMETOLOGY METHOD 04/19/2025 9:05 AM [facility] Hematocrit 40.9 35.0 - 47.0 % LAB HEMETOLOGY METHOD 04/19/2025 9:05 AM [facility] MCV 90.5 79.0 - 98.0 FL LAB HEMETOLOGY METHOD 04/19/2025 9:05 AM [facility] MCH 30.1 27.0 - 32.0 pcg LAB HEMETOLOGY METHOD 04/19/2025 9:05 AM [facility] MCHC 33.3 32.0 - 37.0 g/dL LAB HEMETOLOGY METHOD 04/19/2025 9:05 AM EDT [facility] RDW 13.7 11.0 - 15.0 % LAB HEMETOLOGY METHOD 04/19/2025 9:05 AM EDT [facility] Platelets 165 130 - 400 K/mcL LAB HEMETOLOGY METHOD 04/19/2025 9:05 AM EDT [facility] MPV 9.6 7.0 - 11.0 FL LAB HEMETOLOGY METHOD 04/19/2025 9:05 AM EDT [facility] NRBC 0.0 <1.0 % LAB HEMETOLOGY METHOD 04/19/2025 9:05 AM EDT [facility] NRBC Absolute 0.00 <0.10 K/mcL LAB HEMETOLOGY METHOD 04/19/2025 9:05 AM EDT [facility] Blood Venous blood specimen / Unknown Venipuncture / Unknown 04/19/2025 7:37 AM EDT 04/19/2025 8:40 AM EDT Umer Noriega MD LAB BLOOD ORDERABLES Final R esult [facility] [address] [place] [address], * Triiodothyronine total (04/19/2025 7:37 AM EDT) T3, Total 89.23 60.00 - 181.00 ng/dL LAB CHEMISTRY METHOD 04/19/2025 11:08 AM EDT [facility] Blood Venous blood specimen / Unknown Venipuncture / Unknown 04/19/2025 7:37 AM EDT 04/19/2025 8:40 AM EDT us Umer Noriega MD LAB BLOOD ORDERABLES Final R esult [facility] [address] [place] [address], [place] [phone] * Thyroxine total (04/19/2025 7:37 AM EDT) [facility] T4, Total 6.2 4.5 - 10.9 mcg/dL LAB CHEMISTRY METHOD 04/19/2025 12:50 PM EDT [facility] Blood Venous blood specimen / Unknown Venipuncture / Unknown 04/19/2025 7:37 AM EDT 04/19/2025 8:40 AM EDT Umer Noriega MD LAB BLOOD ORDERABLES Final R esult Performing Organization Address City/[facility]/ZIP Co de Phone Number [facility] [address] [place] [address], * Magnesium (04/19/2025 7:37 AM EDT) [facility] Magnesium 1.9 1.9 - 2.6 mg/dL LAB CHEMISTRY METHOD 04/19/2025 9:29 AM EDT [facility] Blood Venous blood specimen / Unknown Venipuncture / Unknown 04/19/2025 7:37 AM EDT 04/19/2025 8:40 AM EDT Umer Noriega MD LAB BLOOD ORDERABLES Final R esult [facility] [address] [place] [address], [place] [phone] * (ABNORMAL) Comprehensive metabolic panel (04/19/2025 7:37 AM EDT) [facility] Sodium 139 133 - 145 mmol/L LAB CHEMISTRY METHOD 04/19/2025 9:29 AM EDT [facility] Potassium 3.8 3.5 - 5.5 mmol/L LAB CHEMISTRY METHOD 04/19/2025 9:29 AM [facility] Chloride 106 96 - 110 mmol/L LAB CHEMISTRY METHOD 04/19/2025 9:29 AM [facility] CO2 28 21 - 32 mmol/L LAB CHEMISTRY METHOD 04/19/2025 9:29 AM [facility] Anion Gap 5 3 - 11 LAB CHEMISTRY METHOD 04/19/2025 9:29 AM [facility] Glucose 80 70 - 100 mg/dL LAB CHEMISTRY METHOD 04/19/2025 9:29 AM [facility] BUN 16 5 - 25 mg/dL LAB CHEMISTRY METHOD 04/19/2025 9:29 AM [facility] Creatinine 0.76 0.50 - 1.10 mg/dL LAB CHEMISTRY METHOD 04/19/2025 9:29 AM [facility] eGFR 92 >=60 mL/min/1. 73m2 LAB CHEMISTRY METHOD 04/19/2025 9:29 AM [facility] Comment:Calculation based on the Chronic Kidney Disease Epidemiology Collaboration (CKD-EPI) equation refit without adjustment for race. BUN/Creatinine Ratio 21.1 LAB CHEMISTRY METHOD 04/19/2025 9:29 AM [facility] Calcium 9.6 8.5 - 10.5 mg/dL LAB CHEMISTRY METHOD 04/19/2025 9:29 AM [facility] AST (SGOT) 20 10 - 42 unit/L LAB CHEMISTRY METHOD 04/19/2025 9:29 AM [facility] ALT (SGPT) 32 10 - 60 unit/L LAB CHEMISTRY METHOD 04/19/2025 9:29 AM [facility] Alkaline Phosphatase 137(H) 42 - 121 unit/L LAB CHEMISTRY METHOD 04/19/2025 9:29 AM [facility] Total Protein 6.5 6.0 - 8.0 g/dL LAB CHEMISTRY METHOD 04/19/2025 9:29 AM EDT [facility] Albumin 3.5 3.2 - 5.0 g/dL LAB CHEMISTRY METHOD 04/19/2025 9:29 AM EDT [facility] Total Bilirubin 0.5 0.0 - 1.4 mg/dL LAB CHEMISTRY METHOD 04/19/2025 9:29 AM EDT [facility] Blood Venous blood specimen / Unknown Venipuncture / Unknown 04/19/2025 7:37 AM EDT 04/19/2025 8:40 AM EDT us Umer Noriega MD LAB BLOOD ORDERABLES Final R esult [facility] [address] [place] [address], from Last 3 Months Insurance MEDICARE MEDICAID - [place] Care Teams Bottom Turning Lathe Turner Relationship Specialty Start Date End Date Umer Noriega MD [address] [place] [address] PCP - General Family Medicine 04/19/25
--- OUTSIDE RECORDS SUMMARY | 2025-07-06 16:43 | XMS_ITS | Encounter Summary ---
Author Organization [employer] Address [address] [place] [address] Care Team Providers Care Block Placer Name Role Phone Umer Noriega MD Primary Care Provider Encounter Details Date Type Department Care Team (Late st Contact Info) Description 05/12/2025 Lab Requisition [facility] - Main Lab [address] [place] [address] Umer Noriega MD [address] [place] [address] Anemia, unspecified; Hypothyroidism, unspecified; Vitamin D deficiency, unspecified Social History Tobacco Use Types Packs/Day Years Used Date Smoking Tobacco: Never Assessed Comments Unknown Sex and Gender Information Value Date Recorded Sex Assigned at Not on file Legal Sex Female 8:36 AM EDT Gender Identity Not on file Sexual Orientation Not on file documented as of this encounter Plan of Treatment Not on file documented as of this encounter Visit Diagnoses Diagnosis Anemia, unspecified Hypothyroidism, unspecified Vitamin D deficiency, unspecified documented in this encounter Care Teams Block Placer Relationship Specialty Start Date End Date Umer Noriega MD [address] [place] [address] PCP - General Family Medicine 04/19/25 documented as of this encounter
--- OUTSIDE RECORDS SUMMARY | 2025-07-06 16:43 | XMS_ITS | Encounter Summary ---
Author Organization [employer] Address [address] [place] [address] Care Team Providers Care Intermediate Project Manager Name Role Phone Umer Noriega MD Primary Care Provider Encounter Details Date Type Department Care Team (Late st Contact Info) Description 04/19/2025 Lab Requisition [facility] - Main Lab [address] [facility] [place] [address] Umer Noriega MD [address] [place] [address] Hypothyroidism, unspecified; Folate deficiency anemia, [...] LAB CHEMISTRY METHOD 04/19/2025 9:29 AM EDT [facility] Blood Venous blood specimen / Unknown Venipuncture / Unknown 04/19/2025 7:37 AM EDT 04/19/2025 8:40 AM EDT Umer Noriega MD LAB BLOOD ORDERABLES Final R esult Performing Organization Address City/[facility]/ZIP Co de Phone Number [facility] [address] [place] [address], [place] [phone] * Triiodothyronine total (04/19/2025 7:37 AM EDT) Pathologist [facility] T3, Total 89.23 60.00 - 181.00 ng/dL LAB CHEMISTRY METHOD 04/19/2025 11:08 AM EDT [facility] Blood Venous blood specimen / Unknown Venipuncture / Unknown 04/19/2025 7:37 AM EDT 04/19/2025 8:40 AM EDT Umer Noriega MD LAB BLOOD ORDERABLES Final R esult [facility] [address] [place] [address], [place] [phone] * Thyroxine total (04/19/2025 7:37 AM EDT) T4, Total 6.2 4.5 - 10.9 mcg/dL LAB CHEMISTRY METHOD 04/19/2025 12:50 PM EDT [facility] Blood Venous blood specimen / Unknown Venipuncture / Unknown 04/19/2025 7:37 AM EDT 04/19/2025 8:40 AM EDT Umer Noriega MD LAB BLOOD ORDERABLES Final R esult Performing Organization Address City/[facility]/ZIP Co de Phone Number [facility] [address] [place] [address], [place] [phone] * (ABNORMAL) Thyroid stimulating hormone (04/19/2025 7:37 AM EDT) TSH 11.71(H) 0.40 - 4.00 mcIU/mL LAB CHEMISTRY METHOD 04/19/2025 11:08 AM EDT [facility] Blood Venous blood specimen / Unknown Venipuncture / Unknown 04/19/2025 7:37 AM EDT 04/19/2025 8:40 AM EDT Umer Noriega MD LAB BLOOD ORDERABLES Final R esult Performing Organization Address City/[facility] Co de Phone Number [facility] [address] [place] [address], [place] [phone] * (ABNORMAL) Lipid panel with reflex to direct LDL (04/19/2025 7:37 AM EDT) Cholesterol 198 0 - 200 mg/dL LAB CHEMISTRY METHOD 04/19/2025 9:29 AM EDT [facility] Triglycerides 87 0 - 150 mg/dL LAB CHEMISTRY METHOD 04/19/2025 9:29 AM EDT [facility] HDL 66 >=40 mg/dL LAB CHEMISTRY METHOD 04/19/2025 9:29 AM EDT [facility] LDL Calculated 115(H) 0 - 100 mg/dL LAB CHEMISTRY METHOD 04/19/2025 9:29 AM EDT [facility] VLDL Cholesterol Vidal 17.4 mg/dL LAB CHEMISTRY METHOD 04/19/2025 9:29 AM T [facility] Non HDL Chol. (LDL+VLDL) 132 <145 mg/dL LAB CHEMISTRY METHOD 04/19/2025 9:29 AM [facility] Chol/HDL Ratio 3.0 0.0 - 4.4 LAB CHEMISTRY METHOD 04/19/2025 9:29 AM T [facility] Blood Venous blood specimen / Unknown Venipuncture / Unknown 04/19/2025 7:37 AM EDT 04/19/2025 8:40 AM EDT us Umer Noriega MD LAB BLOOD ORDERABLES Final R esult [facility] [address] [place] [address], * (ABNORMAL) Comprehensive metabolic panel (04/19/2025 7:37 AM EDT) Sodium 139 133 - 145 mmol/L LAB CHEMISTRY METHOD 04/19/2025 9:29 AM [facility] Potassium 3.8 3.5 - 5.5 mmol/L LAB CHEMISTRY METHOD 04/19/2025 9:29 AM [facility] Chloride 106 96 - 110 mmol/L LAB CHEMISTRY METHOD 04/19/2025 9:29 AM [facility] CO2 28 21 - 32 mmol/L LAB CHEMISTRY METHOD 04/19/2025 9:29 AM [facility] Anion Gap 5 3 - 11 LAB CHEMISTRY METHOD 04/19/2025 9:29 AM [facility] Glucose 80 70 - 100 mg/dL LAB CHEMISTRY METHOD 04/19/2025 9:29 AM [facility] BUN 16 5 - 25 mg/dL LAB CHEMISTRY METHOD 04/19/2025 9:29 AM [facility] Creatinine 0.76 0.50 - 1.10 mg/dL LAB CHEMISTRY METHOD 04/19/2025 9:29 AM [facility] eGFR 92 >=60 mL/min/1. 73m2 LAB CHEMISTRY METHOD 04/19/2025 9:29 AM [facility] Comment:Calculation based on the Chronic Kidney Disease Epidemiology Collaboration (CKD-EPI) equation refit without adjustment for race. BUN/Creatinine Ratio 21.1 LAB CHEMISTRY METHOD 04/19/2025 9:29 AM [facility] Calcium 9.6 8.5 - 10.5 mg/dL LAB CHEMISTRY METHOD 04/19/2025 9:29 AM [facility] AST (SGOT) 20 10 - 42 unit/L LAB CHEMISTRY METHOD 04/19/2025 9:29 AM [facility] ALT (SGPT) 32 10 - 60 unit/L LAB CHEMISTRY METHOD 04/19/2025 9:29 AM [facility] Alkaline Phosphatase 137(H) 42 - 121 unit/L LAB CHEMISTRY METHOD 04/19/2025 9:29 AM [facility] Total Protein 6.5 6.0 - 8.0 g/dL LAB CHEMISTRY METHOD 04/19/2025 9:29 AM [facility] Albumin 3.5 3.2 - 5.0 g/dL LAB CHEMISTRY METHOD 04/19/2025 9:29 AM [facility] Total Bilirubin 0.5 0.0 - 1.4 mg/dL LAB CHEMISTRY METHOD 04/19/2025 9:29 AM [facility] Blood Venous blood specimen / Unknown Venipuncture / Unknown 04/19/2025 7:37 AM EDT 04/19/2025 8:40 AM EDT Umer Noriega MD LAB BLOOD ORDERABLES Final R esult [facility] [address] [place] [address], * Complete blood count (04/19/2025 7:37 AM EDT) WBC 6.7 4.8 - 10.8 K/mcL LAB HEMETOLOGY METHOD 04/19/2025 9:05 AM EDT [facility] RBC 4.50 3.80 - 4.80 M/mcL LAB HEMETOLOGY METHOD 04/19/2025 9:05 AM EDT [facility] Hemoglobin 13.6 11.5 - 16.0 g/dL LAB HEMETOLOGY METHOD 04/19/2025 9:05 AM [facility] Hematocrit 40.9 35.0 - 47.0 % LAB HEMETOLOGY METHOD 04/19/2025 9:[facility] MCV 90.5 79.0 - 98.0 FL LAB HEMETOLOGY METHOD 04/19/2025 9:05 AM EDT [facility] MCH 30.1 27.0 - 32.0 pcg LAB HEMETOLOGY METHOD 04/19/2025 9:05 AM [facility] MCHC 33.3 32.0 - 37.0 g/dL LAB HEMETOLOGY METHOD 04/19/2025 9:05 AM EDT [facility] RDW 13.7 11.0 - 15.0 % LAB HEMETOLOGY METHOD 04/19/2025 9:05 AM [facility] Platelets 165 130 - 400 K/mcL LAB HEMETOLOGY METHOD 04/19/2025 9:05 AM [facility] MPV 9.6 7.0 - 11.0 FL LAB HEMETOLOGY METHOD 04/19/2025 9:05 [facility] NRBC 0.0 <1.0 % LAB HEMETOLOGY METHOD 04/19/2025 9:05 AM EDT [facility] NRBC Absolute 0.00 <0.10 K/mcL LAB HEMETOLOGY METHOD 04/19/2025 9:05 AM EDT [facility] Blood Venous blood specimen / Unknown Venipuncture / Unknown 04/19/2025 7:37 AM EDT 04/19/2025 8:40 AM EDT us Umer Noriega MD LAB BLOOD ORDERABLES Final R esult [facility] [address] [place] [address], documented in this encounter Visit Diagnoses Diagnosis Hypothyroidism, unspecified Folate deficiency anemia, unspecified documented in this encounter Care Teams Intermediate Project Manager Relationship Specialty Start Date End Date Umer Noriega MD [address] [place] [address] PCP - General Family Medicine 04/19/25 documented as of this encounter
[2025-07-06 16:47] LABS: Glucose, Whole Blood 117 mg/dL (60-115)
--- NOTE | 2025-07-06 16:54 | ECG_ITS ---
Test Reason : SEIZURES Blood Pressure : */* mmHG Vent. Rate : 103 BPM Atrial Rate : 103 BPM P-R Int : 194 ms QRS Dur : 84 ms QT Int : 334 ms P-R-T Axes : 37 -27 38 degrees QTcB Int : 437 ms Sinus tachycardia Minimal voltage criteria for LVH, may be normal variant ( R in aVL ) Cannot rule out Anteroseptal infarct (cited on or before 20-Jun-2025) Abnormal ECG When compared with ECG of 20-Jun-2025 17:47, No significant change was found Referred By: Generic ED Physician Electronically Signed By: Samir Becerra
[2025-07-06 17:21] LABS: MANUAL DIFF FLAG NO
[2025-07-06 17:25] LABS: Hemoglobin 14.5 g/dl (12.0-16.0); Imm Gran Abs Auto 0.02 X10*3/uL (0.00-0.03); NRBC Abs Auto 0.000 X10*3/uL (0.0-0.012); NRBC Pct Auto 0.0 /100WBC (0.0-0.2); PLT CLUMP 1; SCAN SMEAR FLAG 1
[2025-07-06 17:27] LABS: Hematocrit 41.3 % (37.0-47.0); Imm Gran Pct Auto 0.3 % (0.0-0.4); Lymphocytes Absolute Auto 0.9 X10*3/uL (1.2-4.9); Mean Corpuscular HGB Conc 35.1 g/dl (31.0-35.0); Mean Corpuscular Hemoglobin 30.9 pg (27.0-33.0); Mean Corpuscular Volume 88.1 fL (80.0-98.0); Red Blood Count 4.69 X10*6/uL (4.20-5.50)
[2025-07-06 17:36] LABS: Alanine Aminotransferase 31 U/L (0-31); Albumin Level 4.0 g/dL (3.5-5.0); Alkaline Phosphatase 109 U/L (39-117); Anion Gap 12 (12-20); Aspartate Amino Transferase 22 U/L (5-31); Blood Urea Nitrogen 10 mg/dL (9-16); Calcium 9.6 mg/dL (8.4-10.2); Carbon Dioxide 26 mmol/L (22-29); Chloride 111 mmol/L (96-108); Creatinine Clr Calc Pharmacy 113.0; Estimated Glomerular Filt Rate > 60; Potassium 3.5 mmol/L (3.3-5.1); Sodium 145 mmol/L (135-145); Total Protein 6.3 g/dL (6.5-8.0)
[2025-07-06 17:52] LABS: Platelet Count 161 X10*3/uL (160-400); White Blood Count 5.8 X10*3/uL (4.8-10.8)
[2025-07-06 17:58] VITALS: BP 134/93; PULSE 91; RESP 19
[2025-07-06] MEDS: levETIRAcetam in NaCl (iso-os) 1,000 MG/100 ML PIGGYBACK 400 MG IV (18:03)
[2025-07-06 19:52] VITALS: BP 147/103; PULSE 98; RESP 15; TEMP 36.8; O2SAT 98
--- NOTE | 2025-07-06 19:55 | ED_ITS ---
HPI - Seizure General Chief Complaint: Seizure Stated Complaint: seizure x1-2 mins Time Seen by Provider: 07/06/25 17:32 History of Present Illness HPI Narrative: Patient 55 years old from [facility] has a history of seizures in the past. Presents today with having a seizure episode lasting about 2 minutes. It was tonic clonic. There was a postictal state. Had a previous history of seizure when I reviewed patient's old labs and records patient was seen in the emergency department about 3 weeks ago at that time had a possible seizure. Patient stated she had a previous history of seizure in the past. Not on medication. No tongue bite no urinary incontinence Related Data Previous Rx's ?Medication ?Instructions ?Recorded cefuroxime axetil 250 mg tablet 250 mg PO Q12H #10 tab s 06/21/25 levetiracetam 500 mg tablet 500 mg PO BID #60 tabs (Keppra) Allergies Allergy/AdvReac Type Severity Reaction Status Date / Time No Known Allergies Allergy Verified 07/06/25 16:34 Review of Systems 2 Review of Systems: Positive seizure Yes all other systems are reviewed and are negative [facility] Past Medical History Attestation statement: The following information was validated with the patient. Social History Social History Smoked in Last 30 Days: Yes Use of substances other than those prescribed or required for medical reasons: No Advance Directives: No Advance Directives Information Provided: No Physical Exam 2 Exam: Exam: Appearance: Alert. Oriented X3. No acute distress. Eyes: Pupils equal, round and reactive to light. ENT: Pharynx normal. Neck: Normal inspection. Neck supple. No lymph nodes noted. No crepitus CVS: Normal heart rate and rhythm. Pulses normal. Normal S1 and S2 Respiratory: No respiratory distress. Breath sounds normal. No Wheezing. No rales Abdomen: Soft and nontender. No rigidity. No distention. good BS x4 Skin: Skin warm and dry. Normal skin color. Normal skin turgor. Extremities: No lower extremity edema. Neurovascular intact to all extremities. No Lacerations. No Rash Neuro: Oriented X 3. No motor deficit. No sensory deficit. Moving all extermities. No slurred speech Vital Signs: Vital Signs: Last Vital Signs Temp 98.2 F 07/06/25 19:52 Pulse 98 07/06/25 19:52 Resp 15 07/06/25 19:52 BP 147/103 H 07/06/25 19:52 Pulse Ox 98 07/06/25 19:52 O2 Del Method Room Air 07/06/25 19:52 BMI result Body Mass Index 41.3 Medications Administered Discontinued Medications Generic Name Dose Route Start Last Admin Trade Name Gucciq PRN Reason Stop Dose Admin Sodium Chloride 1,000 mls @ 999 mls/hr 07/06/25 17:45 07/06/25 17:59 Ns IV 07/06/25 18:45 999 mls/hr .Q1H1M JHONNY Administration Levetiracetam 1,000 mg in 100 mls @ 400 mls/hr 07/06/25 17:43 07/06/25 18:36 Keppra IV 07/06/25 17:57 Infused ONCE ONE Infusion Sodium Chloride 1,000 mls @ 999 mls/hr 07/06/25 17:45 07/06/25 18:00 Ns IV 07/06/25 18:45 999 mls/hr .Q1H1M JHONNY Administration Medical Decision Making Medical Decision Making [facility] Narrative: Patient well appearing no acute distress no CT scan was done today as there was a CAT scan that was done 2 weeks ago. It was grossly negative patient is awake alert oriented in no distress heart rate is down to 100. My interpretation patient's EKG showed a sinus rhythm heart rate is 100 NJ QRS QTC normal no acute ST segment elevation discussed the case with Neurology likely seizure had a history of seizure not on medication last seizure was about 2 weeks ago. Will start patient on Keppra 500 mg 1st dose given IV. Will prescribe the same 500 mg twice a day to start follow-up with Dr. Vital on an outpatient basis. Differential Diagnosis Differential Diagnoses: The differential diagnosis associated with the presentation includes Seizure Admission/Observation Consideration of admission/observation: Escalation of care including admission/observation considered Consult Healthcare Provider Management of the patient was discussed with: Leguillon Debeader (Neurology was consulted) Lab Data [facility] Lab Attestation statement: I reviewed the patient's lab results. 07/06/25 17:17 07/06/25 17:17 Labs: Lab Results 07/06/25 07/06/25 Range/Units 16:42 17:17 WBC 5.8 (4.8-10.8) X10*3/uL RBC 4.69 (4.20-5.50) X10*6/uL Hgb 14.5 (12.0-16.0) g/dl Hct 41.3 (37.0-47.0) % MCV 88.1 (80.0-98.0) fL MCH 30.9 (27.0-33.0) pg MCHC 35.1 H (31.0-35.0) g/dl RDW 12.9 (11.0-16.0) % Plt Count 161 (160-400) X10*3/uL MPV 8.9 L (9.4-12.3) fL Immature Gran % (Auto) 0.3 (0.0-0.4) % Neut % (Auto) 74.1 H (45-73) % Lymph % (Auto) 14.9 L (20-40) % Pacific % (Auto) 6.9 (2-11) % Eos % (Auto) 3.3 (0-4) % Baso % (Auto) 0.5 (0-2) % Lymph # (Auto) 0.9 L (1.2-4.9) X10*3/uL Pacific # (Auto) 0.4 (0.1-1.2) X10*3/uL Eos # (Auto) 0.2 (0.0-0.4) X10*3/uL Baso # (Auto) 0.0 (0.0-0.2) X10*3/uL Abs Immat Gran (auto) 0.02 (0.00-0.03) X10*3/uL Absolute Neuts (auto) 4.3 (2.0-8.3) x10*3/uL Absolute Nucleated RBC 0.000 (0.0-0.012) X10*3/uL Nucleated RBC % (auto) 0.0 (0.0-0.2) /100WBC Sodium 145 (135-145) mmol/L Potassium 3.5 (3.3-5.1) mmol/L Chloride 111 H (96-108) mmol/L Carbon Dioxide 26 (22-29) mmol/L Anion Gap 12 (12-20) BUN 10 (9-16) mg/dL Creatinine 0.76 (0.5-1.4) mg/dL Estim Creat Clear Calc 113.0 Estimated GFR > 60 POC Glucose 117 H (60-115) mg/dL Random Glucose 116 H (60-115) mg/dL Calcium 9.6 (8.4-10.2) mg/dL Total Bilirubin 0.4 (0.0-1.0) mg/dL AST 22 (5-31) U/L ALT 31 (0-31) U/L Alkaline Phosphatase 109 (39-117) U/L Total Protein 6.3 L (6.5-8.0) g/dL Albumin 4.0 (3.5-5.0) g/dL Independent Interpretation I performed an independent interpretation of an: EKG (Sinus heart rate is 70 NJ QRS QTC normal no acute ST segment elevation) External Record Review Previous visit Tests considered The following testing was considered but not selected: CT head was not done today because patient had 1 recently Chronic Conditions Schizophrenia Social Determinants Patient?s care significantly limited by Social Determinants of Health including: Inadequate housing, Low income, Problems related to primary support group and Unemployment Discharge Plan Discharge Clinical Impression: Generalized seizure Patient Disposition: Home, Self-Care Instructions: Recurrent Seizures in Adults (ED) Additional Instructions: Seizure precaution no activities that will put you in danger if you have a seizure at that time Prescriptions: New levetiracetam [Keppra] 500 mg tablet 500 mg PO BID Qty: 60 0RF No Action cefuroxime axetil 250 mg tablet 250 mg PO Q12H Qty: 10 0RF Referrals: Rosmery Vital MD [Physician, Neurology] - 07/09/25 Print Language: Somali
--- NOTE | 2025-07-06 19:57 | PC.NURSE ---
this rn assumed care of pt, pt assisted to bathroom with stand by assist. urine sample obtained and sent to lab. pt iv fluids remain administering
[2025-07-06 20:03] LABS: Appearance Urine Clear; Glucose Urine UA Negative (Negative); PH 6.5 (5.0-9.0); Specific Gravity - Urine 1.010 (1.005-1.025); UMIC TRIGGER UACC YES
[2025-07-06 20:08] LABS: UACC Culture Trigger YES
--- NOTE | 2025-07-06 20:15 | PC.NURSE ---
report given to doretha nunez at [facility]
[2025-07-06 20:26] VITALS: BP 147/103; PULSE 98; RESP 15; TEMP 36.8; O2SAT 98
[2025-07-06 21:50] LABS: Cannabinoid Screen Urine Not Detected (Not Detect)
== END 2025-07-06 20:50 | disposition home or self-care (01) ==
PROVIDERS: Emergency Provider Emergency Medicine Emergency Medical Services; PCP Internal Medicine Rheumatology
DX: R56.9 Unspecified convulsions (principal); R00.0 Tachycardia, unspecified; R11.0 Nausea; Z51.81 Encounter for therapeutic drug level monitoring; Z79.899 Other long term (current) drug therapy
CPT/HCPCS: 36415; 80053; 80307; 81001; 81003; 82947; 85025; 87086; 93005; 96361; 96374; 99285; J1953

== ENCOUNTER → 2025-07-06 16:54 | Outpatient (BNV) | payer MEDICARE, MEDICAID, SELFPAY | PROVIDERS: Emergency Provider Emergency Medicine Emergency Medical Services; PCP Internal Medicine Rheumatology; Visit Provider Internal Medicine Cardiovascular Disease | DX: R00.0 Tachycardia, unspecified (principal) | CPT/HCPCS: 93010 ==

== ENCOUNTER 2025-07-30 10:14 | Outpatient (AMB) | payer MEDICARE, MEDICAID, SELFPAY ==
--- NOTE | 2025-07-30 10:19 | MHC.OFFVIS ---
Vital Signs 07/30/25 10:21 Height 5 ft 8 in Weight 260 lb 7 oz BMI 39.6 BP 154/108 H Blood Pressure Location Rt radial Position Sitting Respiration 16 Pulse 130 H Pulse Oximetry (%) 96 Oxygen Delivery Method Room Air Intake Visit Reasons: seizures Allergies No Known Allergies Allergy (Verified 07/30/25 10:19) Medication List - Last Reconciled 07/30/25 by Stella Hernandez, MAKEDA acetaminophen 325 mg PO QID PRN cefuroxime axetil 250 mg PO Q12H epinephrine (EpiPen) 0.3 mg IM Q15M PRN haloperidol 10 mg PO DAILY levetiracetam 750 mg PO BID 90 days levothyroxine (Unithroid) 300 mcg PO DAILY naloxone 0.4 mg subcut Q2M PRN HPI Comments Details: Alka is a 55-year-old female patient with a past medical history of schizoaffective disorder, frontotemporal neurocognitive disorder, osteoarthritis, benign neoplasm of the pituitary gland here today to establish care for seizures. According to referral notes, she was smoking and fell from a seated position with seizure-like activity. She was seen face down with a braided knuckles on both hands. She was transferred to the emergency department and was diagnosed with a urinary tract infection. A CT scan of the head did not show any traumatic injuries. She was treated for urinary tract infection. Today Alka's present with a SALES CENTER MANAGER staff member from [facility]. Since her initial seizure event, she has had 1 subsequent seizure event for which she was transferred to the emergency room. At that time, she was placed on levetiracetam 500 mg twice daily. Notes from this ER visit due reflect this plan. She has been taking the levetiracetam consistently since discharge from the emergency room. She has not had any further seizure events however her SALES CENTER MANAGER does tell me today that this morning, after having a cigarette, she started to walk funny? and was leaning backwards slightly. She was also ?clammy? and slightly ?out of it? and not herself. It seems as though most of these if not all of them have started after having a cigarette. She is not acting strange or having difficulty each time she smokes however. They deny any other focal neurological events or symptoms such as transient changes in behavior that are different from her baseline, flailing of arms or legs, staring episodes, abnormal movements, or lip-smacking episodes. They both report that she has been compliant with the levetiracetam 500 mg twice daily. She has been feeling well without any known illnesses or urinary symptoms. According to the SALES CENTER MANAGER with her today, there has been some discussion of possible history of epilepsy though when she arrived to [facility], she had not been on any seizure medication and seizure history has been very remote if at all. Prior workup: 06/20/2025 CT brain findings: Scattered subcortical and periventricular hypoattenuation, likely in keeping with chronic small vessel ischemic disease. Parenchymal volume loss with compensatory prominence of the ventricles and CSF spaces. No acute territorial infarction, intracranial hemorrhage, midline shift or hydrocephalus. Scattered lacunar infarcts left frontal lobe with ex vacuo dilatation of the left frontal horn lateral ventricle. Expansile empty sella, nonspecific. The visualized paranasal sinuses and mastoid air cells are normal. The orbits are within normal limits. There is no acute fracture. IMPRESSION: 1. No acute intracranial hemorrhage or territorial infarction. 2. Additional findings as described. [facility] Medical History (Updated 07/30/25 @ 11:06 by Stella Hernandez CNP) Paranoid schizophrenia Hypothyroidism Periodontal disease Anxiety Insomnia Vitamin D deficiency Seizure disorder Review of Systems Const All systems reviewed & are unremarkable except as noted in HPI and below Physical Exam Vital Signs: Last Vital Signs Pulse 130 H 07/30/25 10:21 Resp 16 07/30/25 10:21 BP 154/108 H 07/30/25 10:21 Pulse Ox 96 07/30/25 10:21 Oxygen Delivery Method Room Air 07/30/25 10:21 BMI result Body Mass Index 39.6 Const General: cooperative and no acute distress Eyes General: appearance normal, both eyes and all related structures Visual Carpio: normal visual carpio by confrontation Alignment and Position: alignment normal Periorbital: periorbital findings normal Eyelids: Yes eyelids normal Conjunctivae: conjunctivae normal Sclerae: sclerae normal Neuro General: deep tendon reflexes 2+ bilaterally Cranial nerves: Yes CN's II-XII intact bilaterally and Yes Facial sensation intact/muscles of mastication intact Gait exam (Neuro): Normal gait present Motor exam (neuro): 5/5 motor strength present throughout and no tremor noted Sensory Exam: double simultaneous stimulation for sensation normal Romberg Test: Negative Pupils: Normal pupillary reactivity/response: bilateral Psych Speech and movement: Slowed speech present (Psych) and Slowed movement present (Neuro) Affect: Blunted affect present Attitude: cooperative and Guarded attititude/behavior present Insight: Limited insight present (Psych) Judgement: Limited judgement present (Psych) Assessment & Plan Assessment & Plan (1) Seizure disorder: Code(s): G40.909 - Epilepsy, unspecified, not intractable, without status epilepticus Category: Medical Plan Alka is a 55-year-old female patient with a past medical history of schizoaffective disorder, frontotemporal neurocognitive disorder, osteoarthritis, benign neoplasm of the pituitary gland here today to establish care for seizures. There was some concern for potential history of epilepsy however this history is remote and she had not been recently treated for seizures. Upon arrival to [facility] in [place] she was not on any antiepileptics. She has however had to tonic-clonic events with loss of consciousness after smoking cigarettes. At the 2nd event, she was started on levetiracetam 500 mg twice daily and has not had any subsequent seizure events though this morning did have an episode of ?clamminess , abnormal gait, and brief change in mentation. Because she is currently on such a small dose, I will increase the dose to 750 mg twice daily and plan to obtain an EEG. Based on the description of the events, seizures are likely however can not exclude possibility of convulsive syncope or other cause for these events. We will see how she response to the increased dose of levetiracetam and what the EEG shows to make decisions about plan moving forward. -increase levetiracetam from 500 mg twice daily to 750 mg twice daily -routine EEG -follow up in 6 weeks or sooner if needed. -SALES CENTER MANAGER staff was advised that they should call the office should she have any further seizure like activity. She was also given information on when it is appropriate to call 911 and seek emergency care. Orders: Orders EEG Routine Today G40.909 - Epilepsy, unspecified, not intractable, without status epilepticus Medications: New levetiracetam 750 mg PO BID 180 tabs 3RF 90 days Discontinued levetiracetam (Keppra) Discontinued Reason: Doctor's Order 500 mg PO BID 60 tabs 0RF Coding Level of Care Code Tele New Pt Level 4 (95331) Diagnoses Seizure disorder G40.909
[2025-07-30 10:21] VITALS: BP 154/108; PULSE 130; RESP 16; O2SAT 96; BMI 39.6
== END 2025-07-30 10:54 | disposition home or self-care (01) ==
LOC: HO.HSM 10:15
PROVIDERS: PCP Internal Medicine Rheumatology; Visit Provider Nurse Practitioner
DX: G40.909 Epilepsy, unspecified, not intractable, without status epilepticus (principal)
CPT/HCPCS: 99204

== ENCOUNTER → 2025-07-30 10:14 | Outpatient (BNVA) | payer MEDICARE, MEDICAID, SELFPAY | PROVIDERS: PCP Internal Medicine Rheumatology; Visit Provider Nurse Practitioner | DX: G40.909 Epilepsy, unspecified, not intractable, without status epilepticus (principal); Z79.899 Other long term (current) drug therapy | CPT/HCPCS: 99202 ==